=== PATIENT | male | born 1955 | race Two or more races ===

== ENCOUNTER 2018-08-14 23:12 | Emergency (ER) | payer OTHER ==
[~2018-08-14] VITALS: Ht 180.3 cm; Wt 86.6 kg
[2018-08-14] MEDS ORDERED: SYNTHROID50 MCG (23:19)
[2018-08-15] MEDS ORDERED: LEVSIN/SL0.125 MG SL (01:36)
[2018-08-15] MEDS ORDERED: PROTONIX20 MG PO (01:36)
[2018-08-15] MEDS ORDERED: PEPCID AC20 MG PO (01:36)
== END 2018-08-15 02:02 | disposition home or self-care (01) ==
LOC: ER 23:12
DX: K29.70 Gastritis, unspecified, without bleeding (principal)